=== PATIENT | male | born 1970 | race Caucasian/White ===

== ENCOUNTER 2021-01-03 20:59 | Emergency (ER) | payer BC ==
[~2021-01-03] VITALS: Ht 185.4 cm; Wt 108.0 kg
[~2021-01-03 20:59] MED LIST: LORTAB 5 OR; PHENTERMINE37.5 MG PO
[2021-01-03 22:45] VITALS: BP 183/107
[2021-01-03] MEDS ORDERED: KEFLEX500 MG PO (22:46)
== END 2021-01-03 23:25 | disposition home or self-care (01) | DRG 605 ==
LOC: ED 20:59
DX: S60.413A Abrasion of left middle finger, initial encounter (principal); W45.0XXA Nail entering through skin, initial encounter; Y93.89 Activity, other specified; Y92.099 Unspecified place in other non-institutional residence as the place of occurrence of the external cause; R03.0 Elevated blood-pressure reading, without diagnosis of hypertension

== ENCOUNTER 2021-12-03 15:19 | Emergency (ER) | payer OTHER, BC ==
[~2021-12-03] VITALS: Ht 185.4 cm; Wt 104.5 kg
[~2021-12-03 15:19] MED LIST changes: +KEFLEX500 MG PO
[2021-12-03 15:31] VITALS: BP 184/105
[2021-12-03 16:01] VITALS: BP 161/111
[2021-12-03 16:31] VITALS: BP 156/105
[2021-12-03 17:00] VITALS: BP 165/111
[2021-12-03] MEDS ORDERED: NAPROXEN500 MG PO (17:22)
[2021-12-03] MEDS ORDERED: VIBRAMYCIN100 M2 PO (17:22)
[2021-12-03 17:27] VITALS: BP 166/111
[2021-12-03 17:30] VITALS: BP 153/104
== END 2021-12-03 17:45 | disposition home or self-care (01) | DRG 605 ==
LOC: ED 15:19
PROC: 0HQGXZZ Repair Left Hand Skin, External Approach (ICD-10-PCS; principal; 2021-12-03)
DX: S61.012A Laceration without foreign body of left thumb without damage to nail, initial encounter (principal); S61.512A Laceration without foreign body of left wrist, initial encounter; W26.8XXA Contact with other sharp object(s), not elsewhere classified, initial encounter; Y93.89 Activity, other specified; Y92.213 High school as the place of occurrence of the external cause; Y99.0 Civilian activity done for income or pay